=== PATIENT | male | born 1960 | race Caucasian/White ===

== ENCOUNTER 2017-08-31 22:02 | Inpatient (IN) | payer OTHER ==
[~2017-08-31] VITALS: Ht 182.9 cm; Wt 97.8 kg
[~2017-08-31 22:02] MED LIST: NAPROSYN500 MG PO; PROAIR HFA8.5 GM IH; TYLENOL EXTRA500 MG PO
[2017-09-01 06:43] VITALS: BP 141/86
[2017-09-01 11:19] VITALS: BP 110/75
[2017-09-01 15:59] VITALS: BP 111/67
[2017-09-01 19:53] VITALS: BP 125/66
[2017-09-02 00:05] VITALS: BP 132/75
[2017-09-02 04:27] VITALS: BP 135/79
[2017-09-02 07:37] LABS: CHLORIDE 105 MEQ/L (99-109); CREATININE 0.8 MG/DL (0.6-1.3); GFR ESTIMATE (CALCULATED) > 59 mL/min/ (58.99-99999); GLUCOSE 103 mg/dL (70-99); POTASSIUM 4.4 MEQ/L (3.7-5.4); SODIUM 140 MEQ/L (136-147); UREA NITROGEN (BUN) 10 mg/dL (9-23)
[2017-09-02 08:23] VITALS: BP 120/83
[2017-09-02 11:43] VITALS: BP 154/88
[2017-09-02 16:01] VITALS: BP 140/81
[2017-09-02 20:22] VITALS: BP 157/77
[2017-09-03 00:26] VITALS: BP 142/82
[2017-09-03 04:22] VITALS: BP 157/78
[2017-09-03 08:00] VITALS: BP 153/85
[2017-09-03] MEDS ORDERED: BENADRYL25 MG PO (09:29)
[2017-09-03] MEDS ORDERED: GABAPENTIN100 MG PO (09:32)
[2017-09-03] MEDS ORDERED: Salonpas 4% Patch TD (09:33)
[2017-09-03] MEDS ORDERED: SENNA PLUS TAB1 EACH PO (09:33)
[2017-09-03] MEDS ORDERED: ASPIR-LOW81 MG PO (09:34)
[2017-09-03] MEDS ORDERED: OXYCODONE HCL5 MG PO (09:34)
[2017-09-03 12:00] VITALS: BP 143/76
== END 2017-09-03 13:20 | DRG 470 ==
LOC: ENRESERV 22:02 → 2SOUTH 09-01 05:32 → 3WEST 09-01 05:32 → 2SOUTH 09-01 10:12 → 3WEST 09-01 11:02 → 2SOUTH 09-01 15:59 → 3WEST 09-03 13:20
PROVIDERS: Orthopaedic Surgery
PROC: 0SRD0J9 Replacement of Left Knee Joint with Synthetic Substitute, Cemented, Open Approach (ICD-10-PCS; principal; 2017-09-01)
PROC: 3E0T3BZ Introduction of Anesthetic Agent into Peripheral Nerves and Plexi, Percutaneous Approach (ICD-10-PCS; principal; 2017-09-01)
DX: M17.12 Unilateral primary osteoarthritis, left knee (principal); I10 Essential (primary) hypertension; Z87.891 Personal history of nicotine dependence; Z88.5 Allergy status to narcotic agent
CPT/HCPCS: 80048; C1713; J0131; J0330; J0690; J1170; J1885; J2250; J2405; J2795; J3010; J7050; J7120; L1820; S0020